=== PATIENT | male | born 2000 | race Caucasian/White ===

== ENCOUNTER 2023-09-01 21:29 | Emergency (ER) | payer OTHER ==
[2023-09-01] MEDS ORDERED: fentaNYL 50 mcg/mL 1 mL Vial ONE (22:14)
[2023-09-01] MEDS ORDERED: Ketorolac Tromethamine 30 MG (1 mL) VIAL ONE (22:15)
[2023-09-01] MEDS ORDERED: PROPOFOL 20 ML ONE (22:15)
== END 2023-09-01 23:18 | disposition home or self-care (01) ==
LOC: EDBD 21:29 → ERS 21:29
DX: S43.005A Unspecified dislocation of left shoulder joint, initial encounter (principal); X50.0XXA Overexertion from strenuous movement or load, initial encounter; Y93.62 Activity, american flag or touch football; Z55.6 Problems related to health literacy
CPT/HCPCS: 23650; 96361; 96374; J1885; J2704; J3010